=== PATIENT | female | born 1935 | race Caucasian/White ===

== ENCOUNTER → 2017-12-17 | Day surgery (SDC) | payer MEDICARE ==
[~2017-12-17] VITALS: Ht 157.5 cm; Wt 85.4 kg
[~2017-12-17] MED LIST: CALCIUM CARBON650 M2 PO; CARTIA XT120 MG PO; COUMADIN 5MG5 MG/TAB PO; COUMADIN4 MG PO; CURCUMIN95% PO; D3 PO; HCTZ12.5TAB PO; K-DUR20 MEQ PO; METAMUCIL3.4 GM/DOS PO; NORCO 325 MG-51 TAB PO; PREVACID 30MG30 M1 PO; PROBIOTIC ACID1 EAC3 PO; SYNTHROID0.088 MG/T PO; TAMOXIFEN CITRA20 MG PO; VITAMIN E 400 U4001 PO
[2017-12-17 07:52] VITALS: BP 124/65; PULSE 63; TEMP 97.8
[2017-12-17 11:50] VITALS: BP 116/55; PULSE 57; TEMP 97.9
[2017-12-17 12:05] VITALS: BP 117/54; PULSE 54
[2017-12-17 12:20] VITALS: BP 120/49; PULSE 54
[2017-12-17 12:35] VITALS: BP 100/52; PULSE 57
[2017-12-17 13:00] VITALS: BP 104/47; PULSE 58
== END ==
LOC: SDCO 06:28
DX: S52.571A Other intraarticular fracture of lower end of right radius, initial encounter for closed fracture (principal); M19.90 Unspecified osteoarthritis, unspecified site; I48.91 Unspecified atrial fibrillation; E78.00 Pure hypercholesterolemia, unspecified; I10 Essential (primary) hypertension; K21.9 Gastro-esophageal reflux disease without esophagitis; E03.9 Hypothyroidism, unspecified; Z88.0 Allergy status to penicillin; Z79.01 Long term (current) use of anticoagulants; Z90.710 Acquired absence of both cervix and uterus; Z90.49 Acquired absence of other specified parts of digestive tract; Z96.653 Presence of artificial knee joint, bilateral; Z85.3 Personal history of malignant neoplasm of breast
CPT/HCPCS: C1713; J0690; J1100; J2250; J2405; J2704; J2795; J3010; J7120